=== PATIENT | female | born 1960 | race Caucasian/White ===

== ENCOUNTER 2022-01-16 12:46 | Emergency (ER) | payer OTHER, SELFPAY ==
--- NOTE | ~2022-01-16 | XR_ITS ---
EXAMINATION: XR KNEE, LEFT CLINICAL INFORMATION: Left knee pain COMPARISON: None TECHNIQUE: Two views of the left knee. FINDINGS: No fracture or dislocation. Small suprapatellar joint effusion. Joint spaces are well-maintained. No significant degenerative changes of the left knee. No focal soft tissue swelling the anterior knee. XR/XR knee LT 2V IMPRESSION: Small suprapatellar joint effusion.
[2022-01-16 13:22] VITALS: BP 153/90; PULSE 78; RESP 20; TEMP 36.8; O2SAT 98; BMI 32.3
--- NOTE | 2022-01-16 16:46 | ED_ITS ---
HPI - Extremity Problem General Chief complaint: Extremity Problem Stated complaint: L LEG PAIN Time Seen by Provider: 01/16/22 16:46 Source: patient, family and certified court interpreter History of Present Illness HPI Narrative: Medial left knee pain or 3 weeks, patient states that the ibuprofen works but then the pain comes back. She denies any associated fever, chills. And is visiting her daughter from [place]. Related Data Previous Rx's Medication Instructions Recorded ketorolac 10 mg tablet 10 mg PO Q6H PRN 5 Days #20 tab 01/16/22 Allergies Allergy/AdvReac Type Severity Reaction Status Date / Time Penicillins Allergy Severe Anaphylaxis Verified 01/16/22 16:52 Review of Systems Review of Systems: Pertinent positives and negatives as stated in HPI 10 point review of systems otherwise negative. [facility] Past Medical History Source: nursing notes reviewed Social History Social History Advance Directives: No Advance Directives Information Provided: Yes Physical Exam Vital Signs: Vital Signs: Last Vital Signs Temp 98.2 F 01/16/22 13:22 Pulse 78 01/16/22 13:22 Resp 20 01/16/22 13:22 BP 153/90 H 01/16/22 13:22 Pulse Ox 98 01/16/22 13:22 BMI result Body Mass Index 32.3 VITAL SIGNS: Reviewed. GENERAL: Well developed, well nourished, in no acute distress. HEAD: Normocephalic/atraumatic EYES: PERRLA, EOMI EARS: Ext canals without abnormality OROPHARYNX: no oral lesions noted, posterior pharynx clear LUNGS: Normal breath sounds. No adventitious sounds or accessory muscle use. SpO2<98> CARDIOVASCULAR: Regular rate and rhythm without noted murmurs ABDOMEN: Soft, non-tender, non-distended with bowel sounds. LEFT LOWER EXTREMITY: THERE IS NO INDURATION/ERYTHEMA/SWELLING NOTED AT THE KNEE THERE IS MILD TENDERNESS TO PALPATION OVER THE MEDIAL ASPECT, DISTAL NEUROV ASCULAR IS INTACT. NEUROLOGIC: Alert and oriented x 4. Course Course Course Narrative: This is a 61-year-old female with history and clinical presentation most consistent with likely osteoarthritis but cannot rule out soft tissue injury to the medial aspect of the left knee. On review of all other investigations there is no evidence of acute fracture or dislocation at this time. Patient will be placed in a knee immobilizer and she was started on Toradol and instructed to discontinue both ibuprofen and naproxen. She is otherwise discharged home in stable condition Discharge Plan Discharge Clinical Impression: Left knee pain Patient Disposition: Home, Self-Care Instructions: Knee Pain (ED), Knee Immobilizer (ED) Additional Instructions: 1. Reanudar todos los medicamentos caseros seg?n lo prescrito. Deje de giuseppe ibuprofeno/Naprosyn. 2. Use el inmovilizador de rodilla cada vez que est? caminando. Considere un parche de lidoca?na que est? disponible sin receta y debe aplicarse en el ?rosa de m?xima sensibilidad carmela se indica en el empaque exterior. 3. Mariposa un seguimiento con lam proveedor de atenci?n primaria para chicho evaluaci?n adicional y chicho posible remisi?n a fisioterapia. Regrese a la lenny de emergencias si los s?ntomas empeoran. Prescriptions: New ketorolac 10 mg tablet 10 mg PO Q6H PRN (Reason: pain) 5 Days Qty: 20 0RF Rx Instructions: Patient received Toradol in the emergency room. Pt STOP current ibuprofen and Naprosyn. Print Language: Yoruba
[2022-01-16] MEDS: Acetaminophen 325 MG TABLET 975 MG PO (17:22)
[2022-01-16] MEDS: Ketorolac Tromethamine 15 MG/ML VIAL IM (17:23)
== END 2022-01-16 17:29 | disposition home or self-care (01) ==
PROVIDERS: Emergency Provider Student in an Organized Health Care Education/Training Program
DX: M25.562 Pain in left knee (principal)
CPT/HCPCS: 73560; 96372; 99283; 99284; J1885